=== PATIENT | male | born 1980 | race African-American/Black ===

== ENCOUNTER 2024-07-18 16:29 | Emergency (ER) | payer OTHER, SELFPAY ==
[2024-07-18 16:37] VITALS: BP 184/125
[2024-07-18 16:38] VITALS: BP 184/117
[2024-07-18 17:51] VITALS: BP 168/110
--- NOTE | 2024-07-18 19:15 | ED.GENMED ---
History of Present Illness
General
Chief Complaint: Blood Pressure Problem
Source: patient
Exam Limitations: none
Time Seen by Provider: 07/18/24 18:52
Nursing documentation reviewed up to this point in time: agreed with
History of Present Illness
History of Present Illness:
pt is a 43 y/o M with h/o HTN, anxiety, depression, thyroid disease
here with elevated bp
pt was being transferred to [facility] today and had elevated bp 180/120
he says he does run a little high but not that high
he feels fine
he says 'maybe i have a little headache but really i feel fine'
no cp, sob, visoin changes, weakness, dizziness
took his meds this morniing
Past History
Past History
ED Past Medical History: HTN and Psychiatric
Social History
Tobacco: Non-smoker
Alcohol: None
Living: assisted
Review of Systems
Review of Systems
Allergies reviewed?: Yes
All Other Systems: Not applicable
Phy Exam
Physical Exam
Physical Exam:
GENERAL: Alert , in no apparent distress
EYE: pupils equal and reactive
NECK: Supple
ENT: o/p clr, mmm.
CARDIAC: Regular rate and rhythm .
LUNGS: Clear breath sounds bilaterally, no acute respiratory distress, no wheezes/rales/rhonchi
ABDOMEN: Soft, without focal tenderness, no r/g, no cvat, normal bowel sounds
NEUROLOGICAL: Alert and oriented, no focal neuro deficits
SKIN: Warm and dry, skin intact.
MUSCULOSKELETAL: No edema, well perfused. neg penelope's sign
PSYCH: Normal and appropriate interaction.
Course
Vital Signs
Initial and Last Documented VS:
Initial Vital Signs
Temp Pulse Resp Pulse Ox
98.2 F 85 16 100
07/18/24 16:36 07/18/24 16:36 07/18/24 16:36 07/18/24 16:36
Last Documented Vital Signs
Temp Pulse Resp BP Pulse Ox
98.2 F 77 20 162/104 100
07/18/24 16:36 07/18/24 17:51 07/18/24 17:51 07/18/24 19:21 07/18/24 19:30
MDM/Problems Addressed
Differential Diagnosis Includes:
asymptomatic hypertension
MDM/Problems Addressed:
43 y/o M
h/o htn
from assisted
[facility] prisons today and was rejected due to high bp
180/125
pt says he is astymaptomatic
no cp, sob, vision changesw
he says 'maybe i have a headache'
but said 'i really feel fine'
bp down to 160/100 without treatment
exam unremarkable
d/w ed attending dr. kaba
no indication to treat asympatomtic htn
pt had labs 2 weeks ago he says and wasn't told of any kidney problems
will d/c back to assisted
*Critical Care Note
Total Time (30-74mins, 75-104mins- exclusive of procedures): Not Applicable
ED Attending Note
-
Portions of this chart may have been created with voice recognition software.� Occasional wrong word or��sound alike� substitutions may have occurred due to the inherent limitations of voice recognition software.
Discharge Plan
Departure
Patient Disposition: Halfway
Date of Disposition: 07/18/24
Time of Disposition: 19:20
Patient with high blood pressure during this ER visit?: Yes
Condition: Fair
Covid-19: Not Applicable
Discharge Problem:
Hypertension
Instructions: High Blood Pressure (DC)
Prescriptions:
No Action
atorvastatin 20 mg Tablet
20 mg PO HS
oxcarbazepine 300 mg Tablet
300 mg PO BID
levothyroxine 25 mcg Tablet
25 mcg PO DAILY
propranolol 40 mg Tablet
40 mg PO DAILY
amlodipine 10 mg Tablet
10 mg PO DAILY
mirtazapine 45 mg Tablet
45 mg PO HS
hydrochlorothiazide 25 mg Tablet
25 mg PO DAILY
duloxetine 30 mg Capsule,Delayed Release(Dr/Ec)
30 mg PO HS
Patient Comments:
taken w/ 60mg = 90mg
duloxetine 60 mg Capsule,Delayed Release(Dr/Ec)
60 mg PO HS
Patient Comments:
taken w/ 30mg = 90mg
Referrals:
[facility] [Family Provider] -
Activity Restrictions/Additional Instructions:
MAGGI HAS ELEVATED BP
WITHOUT TREATMENT CAME DOWN TO 160/102
HE IS ASYMPTOMATIC
HE IS MEDICALLY CLEARED FOR INCARCERATION.
Interventions
Interventions:
*Risk Screen - Suicide Last Done: 07/18/24 16:32
*General Assessment Last Done: 07/18/24 16:32
*Neglect/Abuse Screening Last Done: 07/18/24 16:32
ED- Fall Risk Assessment Last Done: 07/18/24 19:34
*ED COVID-19 Vaccine History Last Done: 07/18/24 16:32
*Nursing Disposition Last Done: 07/18/24 19:34
ED- Cardiac Assessment Last Done: 07/18/24 16:32
ED- Neurological Assessment Last Done: 07/18/24 16:32
ED- Pulmonary Assessment Last Done: 07/18/24 16:32
Discharge Date and Time
Discharge Date/Time: 07/18/24 19:37
Print Language: KOSOVAN
[2024-07-18 19:21] VITALS: BP 162/104
== END 2024-07-18 19:37 ==
LOC: EMR 16:29
PROVIDERS: EMERGENCY PHYSICIAN Emergency Medicine
DX: I10 Essential (primary) hypertension (principal); F41.9 Anxiety disorder, unspecified; F32.A Depression, unspecified; E07.9 Disorder of thyroid, unspecified
CPT/HCPCS: 99282